=== PATIENT | female | born 1995 | race Caucasian/White ===

== ENCOUNTER → 2019-04-15 | Outpatient (CLI) | payer OTHER ==
[2019-04-15 13:42] LABS: BASO # 0.1 10^3/uL (0.0-0.2); BASO % 0.5 % (0.0-1.0); EOS # 0.1 10^3/uL (0.0-0.50); EOS % 0.7 % (0.0-3.0); HEMATOCRIT 42.4 % (36.0-47.0); HEMOGLOBIN 14.1 g/dl (12.0-15.5); LYMPH # 1.9 10^3/uL (1.5-6.5); LYMPH % 19.7 % (24.0-44.0); MEAN CORPUSCULAR HEMOGLOBIN 30.2 pg (27.0-33.0); MEAN CORPUSCULAR HGB CONC 33.3 g/dl (32.0-36.5); MEAN CORPUSCULAR VOLUME 90.8 fl (80.0-96.0); MONO # 0.7 10^3/uL (0.0-0.8); MONO % 7.3 % (0.0-5.0); NEUTROPHILS # 6.9 10^3/uL (1.8-7.7); NEUTROPHILS % 71.5 % (36.0-66.0); PLATELET COUNT, AUTOMATED 301 10^3/uL (150-450); RED BLOOD COUNT 4.67 10^6/uL (4.00-5.40); WHITE BLOOD COUNT 9.6 10^3/uL (4.0-10.0)
[2019-04-16 09:53] LABS: HIV 1&2 SCREEN CENTAUR NEGATIVE (NEGATIVE); RUBELLA IgG QUALITATIVE SUSCEPTIBLE (IMMUNE)
== END ==
LOC: M SMT 08:51
PROVIDERS: ATTEND Advanced Practice Midwife
DX: Z34.81 Encounter for supervision of other normal pregnancy, first trimester (principal); Z3A.01 Less than 8 weeks gestation of pregnancy

== ENCOUNTER → 2019-04-16 | Outpatient (REF) | payer OTHER ==
[2019-04-16 19:28] LABS: CHLAMYDIA DNA AMPLIFICATION NEGATIVE (NEGATIVE); GC DNA AMPLIFICATION NEGATIVE (NEGATIVE)
== END ==
LOC: M LAB REF 16:50
PROVIDERS: ATTEND Advanced Practice Midwife
DX: Z34.81 Encounter for supervision of other normal pregnancy, first trimester (principal); Z3A.01 Less than 8 weeks gestation of pregnancy

== ENCOUNTER 2019-07-23 15:38 | Emergency (ER) | payer OTHER ==
[~2019-07-23] VITALS: Ht 162.6 cm; Wt 74.1 kg
[2019-07-23 15:39] VITALS: BP 151/68
[2019-07-23] MEDS ORDERED: PRENTAB53 PO (15:45)
[2019-07-23] MEDS ORDERED: BACITRACIN OINT 30GM TOP ONE (17:15)
== END 2019-07-23 17:11 | disposition home or self-care (01) ==
LOC: M ED 15:38
DX: S60.414A Abrasion of right ring finger, initial encounter (principal); S60.412A Abrasion of right middle finger, initial encounter; V43.52XA Car driver injured in collision with other type car in traffic accident, initial encounter; Y92.9 Unspecified place or not applicable; Y93.9 Activity, unspecified; Y99.9 Unspecified external cause status; Z3A.20 20 weeks gestation of pregnancy; Z79.899 Other long term (current) drug therapy; Z88.0 Allergy status to penicillin

== ENCOUNTER → 2019-07-23 | Outpatient (CLI) | payer OTHER ==
[~2019-07-23] MED LIST: PRENTAB53 PO
--- NOTE | 2019-07-23 11:05 | REP ---
Clinical: Anatomical evaluation. Comparison: None . Findings: Examination demonstrates a single live intrauterine in cephalic presentation. motion is identified by technologist. Placenta is noted posterior and grade I without evidence for placenta previa or abruption. Amniotic fluid volume is normal. Cervix measures 4.1 cm in length and appears closed. No evidence for nuchal cord. Gestational age by LMP 20 weeks 2 days with JUICE 12/08/2019 . Gestational age by current measurements 20 weeks 2 days with JUICE 12/08/2019 . FHR equals 149 beats per minute. BPD 4.9 cm 20 weeks 6 days HC 18.1 cm 20 weeks 3 days AC 15.1 cm 20 weeks 2 days FL 3.2 cm 20 weeks 0 days HL 3.0 cm 19 weeks 6 days HC/AC ratio 1.20 Estimated weight 340 grams ( 44 percentile). Anatomical assessment demonstrates normal structures including cranium, choroid plexus, cavum, cerebellum/posterior fossa, facial features, lungs, four-chamber heart/ventricular outflow tracts, diaphragm, stomach, cord insertion/three-vessel cord, kidneys/bladder, spine, and extremities. Impression: Single live intrauterine in cephalic presentation demonstrating appropriate interval growth. Anatomical assessment is complete and normal. No gross abnormalities are identified. Electronically Signed by Perez Barbosa MD 07/23/2019 10:56 A
== END ==
LOC: M RAD 09:18
PROVIDERS: ATTEND Advanced Practice Midwife
DX: Z34.02 Encounter for supervision of normal first pregnancy, second trimester (principal); Z36.89 Encounter for other specified antenatal screening; Z3A.20 20 weeks gestation of pregnancy

== ENCOUNTER → 2019-09-11 | Outpatient (CLI) | payer OTHER ==
[2019-09-11 13:38] LABS: HEMATOCRIT 39.5 % (36.0-47.0); HEMOGLOBIN 12.4 g/dl (12.0-15.5); MEAN CORPUSCULAR HEMOGLOBIN 29.7 pg (27.0-33.0); MEAN CORPUSCULAR HGB CONC 31.4 g/dl (32.0-36.5); MEAN CORPUSCULAR VOLUME 94.7 fl (80.0-96.0); PLATELET COUNT, AUTOMATED 249 10^3/uL (150-450); RED BLOOD COUNT 4.17 10^6/uL (4.00-5.40); WHITE BLOOD COUNT 10.4 10^3/uL (4.0-10.0)
== END ==
LOC: M PLALAB 09:15
PROVIDERS: ATTEND Advanced Practice Midwife
DX: Z34.92 Encounter for supervision of normal pregnancy, unspecified, second trimester (principal); Z36.89 Encounter for other specified antenatal screening

== ENCOUNTER → 2019-11-10 | Outpatient (REF) | payer OTHER | LOC: M SFHCWAGY 16:54 | PROVIDERS: ATTEND Specialist | DX: Z34.03 Encounter for supervision of normal first pregnancy, third trimester (principal) ==

== ENCOUNTER 2019-12-04 16:22 | Inpatient (IN) | payer OTHER ==
[~2019-12-04] VITALS: Ht 162.6 cm; Wt 81.3 kg
[2019-12-04 16:52] VITALS: BP 133/80
--- NOTE | 2019-12-04 17:44 | HPE ---
DATE OF ADMISSION: 12/04/2019 A 24-year-old G1 at 39-3/7 weeks gestation by 6-week ultrasound, estimated date of confinement (EDC) of 12/08/2019, presents with spontaneous loss of fluid from her vagina at 12:50 p.m. on the day of admission. She continued to leak and saturate a Peripad throughout the day. Her contractions increased to every 5 minutes. They become stronger. COURSE: The patient's care has been through [facility]. She has had no complications. MEDICAL HISTORY: None. SURGICAL HISTORY: [place] teeth removal. ALLERGIES: AMOXICILLIN. SOCIAL HISTORY: The patient lives in [place], [place]. She denies cigarettes, alcohol, or drug use. She is . FAMILY HISTORY: Noncontributory. PHYSICAL EXAMINATION: Blood pressure is 133/80, pulse 82, afebrile. She is in no apparent distress. HEAD AND NECK: Normal. LUNGS: Clear. HEART: Regular rate and rhythm. ABDOMEN: Nontender, gravid. heart tones category 1. Contractions every 3-4 minutes, moderate. Sterile vaginal exam: Grossly ruptured. Clear fluid. Fern positive. Nitrazine positive. Cervix 3 cm, 90%, -2, posterior, soft vertex. EXTREMITIES: Nontender. LABORATORY DATA: Blood type O positive, GBS negative. ASSESSMENT: A 24-year-old G1, P0 female at 39-3/7 weeks gestation with spontaneous rupture of membranes, in early labor. PLAN: The patient is admitted on 12/04/2019.
[2019-12-04 17:52] LABS: HEMATOCRIT 39.8 % (36.0-47.0); HEMOGLOBIN 13.3 g/dl (12.0-15.5); MEAN CORPUSCULAR HEMOGLOBIN 29.3 pg (27.0-33.0); MEAN CORPUSCULAR HGB CONC 33.4 g/dl (32.0-36.5); MEAN CORPUSCULAR VOLUME 87.7 fl (80.0-96.0); PLATELET COUNT, AUTOMATED 237 10^3/uL (150-450); RED BLOOD COUNT 4.54 10^6/uL (4.00-5.40); WHITE BLOOD COUNT 10.8 10^3/uL (4.0-10.0)
[2019-12-04 17:54] VITALS: BP 113/72
[2019-12-04 19:15] VITALS: BP 112/72
[2019-12-04] MEDS ORDERED: LR 1,000 ML IV SCH (21:00)
[2019-12-04] MEDS ORDERED: OXYTOCIN DRIP 30 UNITS in IV 1 EA IV SCH (21:00)
[2019-12-05] VITALS (20 sets, daily range): BP systolic 93–138; BP diastolic 56–84
[2019-12-05] MEDS ORDERED: FENTANYL 2MCG/ML ROPIVACAINE 0.2% IN 0.9% NACL 100ML IVBAG As Ordered ONE (00:18)
[2019-12-05] MEDS ORDERED: EPIDURAL/PCA KEYS XX PRN (01:55)
[2019-12-05] MEDS ORDERED: ONDANSETRON 4MG/2ML VIAL (J2405 PER 1MG) IV PRN ×2 (01:55→07:30)
[2019-12-05] MEDS ORDERED: EPIDURAL COMMENT XX SCH (01:55)
[2019-12-05] MEDS ORDERED: LACTATED RINGER'S 1000 ML IV PRN (01:55)
[2019-12-05] MEDS ORDERED: NALOXONE INJ 0.4MG/1ML VIAL (J2310 PER 1MG) IV PRN (01:55)
[2019-12-05] MEDS ORDERED: diphenhydrAMINE 50MG/ML VIAL (J1200) IV PRN (01:55)
[2019-12-05] MEDS ORDERED: FENTANYL/ROPIVACAINE/NACL BAG 100 ML EPIDURAL SCH (01:55)
[2019-12-05] MEDS ORDERED: ePHEDrine SULFATE 25 MG/5 ML(5MG/ML) SYRINGE IV PRN (01:55)
[2019-12-05] MEDS ORDERED: REFRIGERATOR IV KEYS XX PRN (01:55)
[2019-12-05] MEDS ORDERED: RHOGAM 300 MCG (1500 IU) INJ (J2790) IM SCH (07:30)
[2019-12-05] MEDS ORDERED: ACETAMINOPHEN 500 MG TAB PO PRN (07:30)
[2019-12-05] MEDS ORDERED: OXYTOCIN DRIP 30 UNITS in IV 1 EA IV ONE (07:30)
[2019-12-05] MEDS ORDERED: MEASLES,MUMPS,RUBELLA VACCINE INJ (MMR-II) (90707) SC SCH (07:30)
[2019-12-05] MEDS ORDERED: METHYLERGONOVINE MALEATE 0.2 MG TAB PO PRN (07:30)
--- NOTE | 2019-12-05 07:32 | DN ---
DATE: 12/05/2019 PRE-DELIVERY DIAGNOSIS: 39 plus weeks labor. POST- DIAGNOSIS: Delivered. PROCEDURE: Spontaneous vaginal delivery. WATER RESOURCE CONSULTANT: Dr. Eduardo Reid. ANESTHESIA: Epidural ESTIMATED BLOOD LOSS: 300 mL. FINDINGS: 9-odbny-71-ounce male infant, Apgars 8 and 9. DELIVER SUMMARY: 1-hours and 10 minutes second stage. Patient had spontaneous delivery of a 1-lwowz-49-ounce male with Apgars 8 and 9 under epidural anesthesia. Loose nuchal cord times one was reduced manually. The shoulders delivered with ease. The was handed to the mother and cried immediately. The cord was doubly clamped and cut. The placenta delivered spontaneously and appeared to be intact. Patient received IV Pitocin immediately after delivery of the placenta. Bilateral first degree sulcus tear was repaired with #2-0 chromic the usual fashion. Sponge and needle counts are correct.
[2019-12-05] MEDS: PRENATAL VITAMINS CHEWABLE TABLET PO SCH (10:00)
[2019-12-05] MEDS: IBUPROFEN 800 MG TAB PO PRN ×2 (12:04→19:51)
[2019-12-05] MEDS: DIBUCAINE 1% OINTMENT 30GM TOP PRN (12:04)
[2019-12-05] MEDS: DOCUSATE SODIUM 100 MG CAP PO PRN (21:15)
[2019-12-06 06:00] VITALS: BP 113/70
[2019-12-06] MEDS: IBUPROFEN 600 MG TAB PO PRN ×2 (07:47→15:13)
[2019-12-06] MEDS: PRENATAL VITAMINS CHEWABLE TABLET PO SCH (07:47)
[2019-12-06] MEDS: ACETAMINOPHEN TAB 650MG DOSE (2X325MG) PO PRN ×3 (09:25→20:45)
[2019-12-06] MEDS: DIBUCAINE 1% OINTMENT 30GM TOP PRN (16:39)
[2019-12-06 18:02] VITALS: BP 119/75
[2019-12-06] MEDS: DOCUSATE SODIUM 100 MG CAP PO PRN (20:44)
[2019-12-07 06:08] VITALS: BP 120/73
[2019-12-07] MEDS: PRENATAL VITAMINS CHEWABLE TABLET PO SCH (08:02)
[2019-12-07] MEDS: DIBUCAINE 1% OINTMENT 30GM TOP PRN (08:19)
== END 2019-12-07 12:00 | disposition home or self-care (01) | DRG 807 ==
LOC: M LDO 16:22 → M LDI 17:21 → M OBS 12-05 09:45
PROVIDERS: ADMIT Specialist; ATTEND Specialist
PROC: 10E0XZZ Delivery of Products of Conception, External Approach (ICD-10-PCS; principal; 2019-12-05)
PROC: 0HQ9XZZ Repair Perineum Skin, External Approach (ICD-10-PCS; 2019-12-05)
DX: O69.81X0 Labor and delivery complicated by cord around neck, without compression, not applicable or unspecified (principal); Z37.0 Single live birth; Z3A.39 39 weeks gestation of pregnancy; O70.0 First degree perineal laceration during delivery

== ENCOUNTER → 2020-08-24 | Outpatient (REF) | payer OTHER ==
[2020-08-24 10:49] LABS: HEMATOCRIT 42.8 % (36.0-47.0); HEMOGLOBIN 13.8 g/dl (12.0-15.5); MEAN CORPUSCULAR HGB CONC 32.2 g/dl (32.0-36.5); MEAN CORPUSCULAR VOLUME 89.9 fl (80.0-96.0); PLATELET COUNT, AUTOMATED 265 10^3/uL (150-450); RED BLOOD COUNT 4.76 10^6/uL (4.00-5.40); WHITE BLOOD COUNT 9.8 10^3/uL (4.0-10.0)
[2020-08-24 12:03] LABS: HEPATITIS C VIRUS ABY INDEX 0.1 INDEX (<0.8); HIV 1&2 SCREEN CENTAUR NEGATIVE (NEGATIVE)
== END ==
LOC: M PLALAB 08:48
PROVIDERS: ATTEND Obstetrics & Gynecology
DX: Z34.80 Encounter for supervision of other normal pregnancy, unspecified trimester (principal); Z3A.08 8 weeks gestation of pregnancy

== ENCOUNTER → 2020-11-03 | Outpatient (CLI) | payer OTHER ==
--- NOTE | 2020-11-03 10:17 | REP ---
INDICATION: ANATOMY COMPARISON: None. TECHNIQUE: Transabdominal obstetrical ultrasound with color Doppler evaluation. FINDINGS: Examination demonstrates a single live intrauterine in variable presentation. motion is identified by technologist. Placenta is noted anterior and grade 1 without evidence for placenta previa or abruption. Amniotic fluid volume is normal. Cervix measures 3.0 cm in length and appears closed.. Gestational age by LMP 18 weeks 1 day with JUICE 04/05/2021. Gestational age by current measurements 18 weeks 3 days with JUICE 04/03/2021. FHR equals 138 beats per minute. BPD: 4.3 cm at 19 weeks 0 days HC: 15.7 cm at 18 weeks 4 days AC: 12.1 cm at 17 weeks 6 days FL: 2.7 cm at 18 weeks 0 days HL: 2.8 cm at 18 weeks 6 days HC/AC: 1.29 Estimated weight 221 grams (38thpercentile). Anatomical assessment demonstrates normal structures including cranium, choroid plexus, cavum, cerebellum/posterior fossa, facial features, lungs, four-chamber heart/ventricular outflow tracts, diaphragm, stomach, cord insertion/three-vessel cord, kidneys/bladder, and extremities. IMPRESSION: 1. Single live intrauterine in variable presentation demonstrating appropriate estimated weight. 2. Limited evaluation of the spine. Remainder of the anatomical assessment is complete and normal. <Electronically signed by Perez Barbosa > 11/03/20 1943
== END ==
LOC: M WHC 08:21
PROVIDERS: ATTEND Obstetrics & Gynecology
DX: O26.892 Other specified pregnancy related conditions, second trimester (principal); Z3A.18 18 weeks gestation of pregnancy

== ENCOUNTER → 2020-12-06 | Outpatient (CLI) | payer OTHER ==
--- NOTE | 2020-12-06 16:19 | REP ---
INDICATION: F/U ANATOMY/JUICE 04/05/21 COMPARISON: 11/03/2020 TECHNIQUE: Transabdominal obstetrical ultrasound with color Doppler evaluation. FINDINGS: Examination demonstrates a single live intrauterine in cephalic presentation. motion is identified by technologist. Placenta is noted anterior and grade 1 without evidence for placenta previa or abruption. Amniotic fluid volume is normal. Cervix measures 3.1 cm in length and appears closed.. Gestational age by 1st U/S 22 weeks 6 days with JUICE 04/05/2021. Gestational age by current measurements 23 weeks 5 days with JUICE 03/30/2021. FHR equals 146 beats per minute. Estimated weight 612 grams (79thpercentile). Anatomical assessment demonstrates normal structures including images of the spine. IMPRESSION: Single live intrauterine in cephalic presentation demonstrating appropriate interval growth. In conjunction with prior examination anatomical assessment is complete and normal. <Electronically signed by Perez Barbosa > 12/06/20 [id number]
== END ==
LOC: M WHC 15:28
PROVIDERS: ATTEND Advanced Practice Midwife
DX: Z36.2 Encounter for other antenatal screening follow-up (principal); O26.892 Other specified pregnancy related conditions, second trimester; Z3A.22 22 weeks gestation of pregnancy

== ENCOUNTER → 2020-12-29 | Outpatient (REF) | payer OTHER ==
[2020-12-29 13:22] LABS: HEMATOCRIT 39.5 % (36.0-47.0); HEMOGLOBIN 12.8 g/dl (12.0-15.5); MEAN CORPUSCULAR HEMOGLOBIN 30.2 pg (27.0-33.0); MEAN CORPUSCULAR HGB CONC 32.4 g/dl (32.0-36.5); MEAN CORPUSCULAR VOLUME 93.2 fl (80.0-96.0); PLATELET COUNT, AUTOMATED 219 10^3/uL (150-450); RED BLOOD COUNT 4.24 10^6/uL (4.00-5.40); WHITE BLOOD COUNT 9.8 10^3/uL (4.0-10.0)
== END ==
LOC: M PLALAB 08:51
PROVIDERS: ATTEND Advanced Practice Midwife
DX: Z34.80 Encounter for supervision of other normal pregnancy, unspecified trimester (principal); Z3A.24 24 weeks gestation of pregnancy

== ENCOUNTER → 2021-03-10 | Outpatient (REF) | payer OTHER | LOC: M SFHCWAGY 12:56 | PROVIDERS: ATTEND Advanced Practice Midwife | DX: Z36.89 Encounter for other specified antenatal screening (principal); Z3A.36 36 weeks gestation of pregnancy ==

== ENCOUNTER 2021-04-04 00:30 | Inpatient (IN) | payer OTHER ==
[~2021-04-04] VITALS: Ht 160 cm; Wt 78.3 kg
[2021-04-04] VITALS (9 sets, daily range): BP systolic 105–131; BP diastolic 66–85
[2021-04-04] MEDS ORDERED: ESSE250T PO (00:44)
[2021-04-04] MEDS ORDERED: OXYTOCIN 30 UNITS IN 0.9% NaCl 500ML IV BAG (J2590) As Ordered ONE (00:46)
[2021-04-04 01:23] LABS: HEMATOCRIT 37.7 % (36.0-47.0); HEMOGLOBIN 12.4 g/dl (12.0-15.5); MEAN CORPUSCULAR HEMOGLOBIN 27.9 pg (27.0-33.0); MEAN CORPUSCULAR HGB CONC 32.9 g/dl (32.0-36.5); MEAN CORPUSCULAR VOLUME 84.9 fl (80.0-96.0); PLATELET COUNT, AUTOMATED 199 10^3/uL (150-450); RED BLOOD COUNT 4.44 10^6/uL (4.00-5.40); WHITE BLOOD COUNT 13.1 10^3/uL (4.0-10.0)
[2021-04-04] MEDS ORDERED: IBUPROFEN 800 MG TAB PO PRN (01:55)
[2021-04-04] MEDS ORDERED: RHOGAM 300 MCG (1500 IU) INJ (J2790) IM SCH (01:55)
[2021-04-04] MEDS ORDERED: METHYLERGONOVINE MALEATE 0.2 MG TAB PO PRN (01:55)
[2021-04-04] MEDS ORDERED: DOCUSATE SODIUM 100MG CAPSULE PO PRN (01:55)
[2021-04-04] MEDS ORDERED: MEASLES,MUMPS,RUBELLA VACCINE INJ (MMR-II) (90707) SC SCH (01:55)
[2021-04-04] MEDS ORDERED: ACETAMINOPHEN TAB 650MG DOSE (2X325MG) PO PRN (01:55)
[2021-04-04] MEDS ORDERED: OXYTOCIN DRIP 30 UNITS in IV 1 EA IV SCH (01:55)
[2021-04-04] MEDS ORDERED: IBUPROFEN 600MG TAB PO PRN (01:55)
[2021-04-04] MEDS ORDERED: MOM 30ML SUSPENSION UDC PO PRN (01:55)
--- NOTE | 2021-04-04 02:01 | HPEPDOC ---
Obstetrical History & Physical General Date of Admission Apr 04, 2021 at 00:42 History of Present Illness 26yo at 39w6d presents in active labor. Chief Complaint: Contractions, term Information Provided By: Patient Age: 26 : 2 Livin Care Care: Good Care Dating Final EDC: Apr 05, 2021 Final EDC by: 1st trimester (US) EGA at Admission: 39 Past Medical History Past Obstetrical History : Past Obstetrical History: Multigravida Date of Delivery: Dec 05, 2019 Type of Delivery: Spontaneous Vaginal Del. Sex of Infant: Male JOB PLACEMENT SPECIALIST History: No pertinent history Past Medical History Surgical History: Denies/None Family History Significant Family History: No pertinent family hx Social History Marital Status: Family situation: Spouse/partner home Psychosocial History: No pertinent psych hx * Smoker: non-smoker Alcohol: Denies Drugs: denies Allergies Coded Allergies: amoxicillin (Verified Allergy, Unknown, 07/23/19) Medications Scheduled Magnesium Oxide (Magnesium Oxide) 250 Mg Tablet, 1 TAB PO DAILY Vit,Calc76/Iron/Folic (Prenatabs Rx Tablet) 1 Each Tablet, 1 TAB PO DAILY Physical Examination Physical Examination GENERAL: Alert and oriented times three. BREAST: . ABDOMEN: Gravid and non-tender to touch. FETUS: Is vertex (VTX) by sterile vaginal examination (SVE), fetus is vertex (VTX) by Sergio. HEART RATE: Regular rate and rhythm. LUNGS: Clear to auscultation (CTA). Vital Signs/I&O Vital Signs Date Time Temp Pulse Resp B/P (MAP) Pulse Ox O2 Delivery O2 Flow Rate FiO2 04/04/21 01:45 89 18 125/76 (92) 04/04/21 01:30 98.7 Laboratory Data 24H LABS Laboratory Tests 2 04/04/21 00:35: Nucleated Red Blood Cells % (auto) 0.0 04/04/21 00:47: Serology Scanned Report Hepatitis B Testing CBC/BMP Laboratory Tests 04/04/21 00:35 Pertinent Laboratoy Data Blood Type: O+ RBC Antibody Screen: Negative HIV: Negative Hepatitis B: Negative Hepatitis C: Negative Rapid Plasma Reagin: Nonreactive Rubella: Immune Chlamydia/Gonorrhea: Negative Group B Streptococcus: Negative Glucose Tolerance Test: 113 Anatomy Ultrasound Placenta Previa: No Vaginal Examination Dilation: 9 cm Effacement: 100% Station: +1 Cervical Consistency: Soft Cervical Position: Anterior Presentation: Cephalic presentation Assessment Variability: Moderate Tocometer Contractions: Yes Frequency: regular Assessment/Plan Assessment 26yo at 39w6d in active labor Reassuring status Plan Admit and orient. Industrial Designer and consent. Diet: regular. Group B Streptococcus (GBS) negative. Labs and intravenous (IV) per unit protocol. Counseled on Pitocin and induction of labor (IOL). Anticipate [normal spontaneous delivery ()]. C-S as appropriate. EDY MILLER MD. Apr 04, 2021 02:01
--- NOTE | 2021-04-04 02:03 | DNPDOC ---
[facility] Delivery Note Delivery Note DATE OF DELIVERY: April 04, 2021 TIME OF : 0122 GENDER: Male. APGARS: 9 and 9. WEIGHT: 3180 g or 7 pounds LACERATIONS: None ANESTHESIA: None ESTIMATED BLOOD LOSS: 200 ml COUNTS: 5 laparotomy sponges accounted for prior to after delivery. DELIVERY NOTE: On on April 04, 2021 at 0122 had a spontaneous vaginal delivery of a liveborn male Apgars 9 and 9 weight was 3180 g or 7 pounds 0 ounces. Head was delivered occiput anterior (OA), followed by delivery of the shoulders and corpus. Infant was handed to mom with a good cry. Cord was clamped times two and was cut by support person under my direction. Placenta was then drained and delivered grossly intact. A premixed bag of 500 mL of normal saline with 30 units of Pitocin was then bolused along with uterine massage until the uterus was firm. On inspection , cervix, vagina, perineum was grossly intact and hemostatic. Mom and baby in recovery on stable condition. Couples decided to need a son Nba. EDY MILLER MD. Apr 04, 2021 02:03
[2021-04-04] MEDS: ACETAMINOPHEN 500 MG TAB PO PRN (07:43)
[2021-04-04] MEDS: PRENATAL VITAMINS CHEWABLE TABLET PO SCH (07:43)
[2021-04-05 06:00] VITALS: BP 124/77
[2021-04-05] MEDS: PRENATAL VITAMINS CHEWABLE TABLET PO SCH (08:11)
[2021-04-05] MEDS: ACETAMINOPHEN 500 MG TAB PO PRN (08:13)
== END 2021-04-05 13:50 | disposition home or self-care (01) | DRG 807 ==
LOC: M LDO 00:30 → M LDI 00:42 → M OBS 03:02
PROVIDERS: ADMIT Obstetrics & Gynecology; ATTEND Obstetrics & Gynecology
PROC: 10E0XZZ Delivery of Products of Conception, External Approach (ICD-10-PCS; principal; 2021-04-04)
DX: O80 Encounter for full-term uncomplicated delivery (principal); Z37.0 Single live birth; Z3A.39 39 weeks gestation of pregnancy